=== PATIENT | male | born 1950 | race Caucasian/White ===

== ENCOUNTER 2022-12-13 08:40 | Emergency (ER) | payer OTHER ==
[~2022-12-13] VITALS: Ht 177.8 cm; Wt 70.3 kg
[2022-12-13 08:42] VITALS: BP 110/67; PULSE 76; RESP 14; TEMP 98.6; O2SAT 98
[2022-12-13] MEDS ORDERED: LORA1T1237 PO (08:58)
[2022-12-13 09:06] VITALS: BP 110/67; PULSE 76; RESP 14; TEMP 98.6; O2SAT 98
== END 2022-12-13 09:05 | disposition home or self-care (01) ==
LOC: EEVIPCON 08:40 → MED 08:40
DX: H92.02 Otalgia, left ear (principal); R42 Dizziness and giddiness; J31.0 Chronic rhinitis; G40.909 Epilepsy, unspecified, not intractable, without status epilepticus; H54.8 Legal blindness, as defined in USA; Z79.899 Other long term (current) drug therapy; Z87.442 Personal history of urinary calculi
CPT/HCPCS: 99283

== ENCOUNTER 2023-12-14 09:33 | Emergency (ER) | payer OTHER ==
[~2023-12-14] VITALS: Ht 177.8 cm; Wt 70.3 kg
[~2023-12-14 09:33] MED LIST: LORA1T1237 PO
[2023-12-14 09:37] VITALS: BP 140/90; PULSE 72; RESP 14; TEMP 98.4; O2SAT 99
[2023-12-14] MEDS: ONDANSETRON 4 MG/2 ML VIAL IVP ONE (10:39)
[2023-12-14 10:40] LABS: BASOPHILS % (AUTO) 0.6 % (0.0-2.0); EOSINOPHILS % (AUTO) 0.6 % (0.0-4.0); HEMATOCRIT 41.2 % (36-52); HEMOGLOBIN 14.3 g/dL (12.0-18.0); LYMPHOCYTES # (AUTO) 0.8 K/uL (2.0-11.5); LYMPHOCYTES % (AUTO) 12.1 % (20.5-51.1); MEAN CORPUSCULAR HEMOGLOBIN 33 pg (27-31); MEAN CORPUSCULAR HGB CONC 35 g/dL (33-37); MEAN CORPUSCULAR VOLUME 94.6 fL (80-94); MONOCYTES # (AUTO) 0.7 K/uL (0.8-1.0); MONOCYTES % (AUTO) 10.1 % (1.7-9.3); NEUTROPHILS % (AUTO) 76.6 % (42.2-75.2); PLATELET COUNT (AUTO) 211 K/uL (140-450); RED BLOOD CELL COUNT(AUTO) 4.35 MIL/uL (4.20-6.10); RED CELL DISTRIBUTION WIDTH 12.9 % (11.6-13.7); WHITE BLOOD COUNT (AUTO) 6.5 K/uL (4.8-10.8)
[2023-12-14] MEDS: KETOROLAC 30 MG/ML VIAL IVP ONE (10:46)
[2023-12-14 10:50] LABS: ANION GAP 6.5 (8-16); CALCIUM 8.5 mg/dL (8.5-10.1); CARBON DIOXIDE 28.2 mmol/L (21-32); CHLORIDE 105 mmol/L (98-107); CREATININE 0.9 mg/dL (0.6-1.3); GLUCOSE 109 mg/dL (74-106); POTASSIUM 3.7 mmol/L (3.5-5.1); SODIUM SERUM 136 mmol/L (136-145); UREA NITROGEN, BLOOD 17 mg/dL (7-18)
[2023-12-14 10:56] LABS: ALBUMIN 3.6 g/dL (3.4-5.0); BILIRUBIN,DIRECT 0.2 mg/dL (0.0-0.3); TOTAL BILIRUBIN 0.8 mg/dL (0.0-1.0); TOTAL PROTEIN, SERUM 5.8 g/dL (6.4-8.2)
[2023-12-14 11:19] LABS: BILIRUBIN,URINE NEGATIVE (NEGATIVE); BLOOD, URINE 3+ (NEGATIVE); COLOR,URINE YELLOW (YELLOW); LEUKOCYTE ESTERASE ,URINE NEGATIVE (NEGATIVE); NITRITE, URINE NEGATIVE (NEGATIVE); PROTEIN,URINE NEGATIVE (NEGATIVE); UGLUCOSE NEGATIVE (NEGATIVE); UROBILINOGEN,URINE 0.2 EU/dL (0.2 - 1)
[2023-12-14 11:20] LABS: APPEARANCE,URINE SLIGHTLY HAZY (CLEAR)
[2023-12-14 11:25] LABS: BACTERIA,URINE 2+ /HPF (None Seen); MUCUS,URINE 3+ /LPF (None Seen); RBC,URINE 11-20 (MOD) /HPF (0-5); SQUAMOUS EPITHELIAL CELL,UR 0-3 (FEW) /LPF (0-3 (FEW))
[2023-12-14] MEDS ORDERED: IBUP-2213 PO (13:03)
[2023-12-14] MEDS ORDERED: CEFP200T20 PO (13:03)
[2023-12-14] MEDS ORDERED: ONDA-188 PO (13:03)
[2023-12-14 13:48] VITALS: BP 119/68; PULSE 61; RESP 16; TEMP 98.4; O2SAT 97
== END 2023-12-14 13:32 | disposition home or self-care (01) ==
LOC: MED 09:33
DX: N20.0 Calculus of kidney (principal); Z86.69 Personal history of other diseases of the nervous system and sense organs; Z79.899 Other long term (current) drug therapy
CPT/HCPCS: 36415; 74176; 80048; 80076; 81001; 83690; 85025; 87086; 96374; 96375; 99285; J1885; J2405